=== PATIENT | female | born 1970 | race Two or more races ===

== ENCOUNTER 2019-09-11 22:56 | Emergency (ER) | payer BC, MEDICAID ==
[2019-09-12] MEDS ORDERED: Alum Hydrox/Mag Hydrox/Simeth 15 ML, Lidocaine 2% 15 ML PO ONE ×2 (00:02)
--- NOTE | 2019-09-12 00:07 | EDM.PDOC ---
ED HPI GENERAL MEDICAL PROBLEM - General Chief Complaint: Abdominal Pain Stated Complaint: ABD PAIN Time Seen by Provider: 09/11/19 23:55 Source of Information: Reports: Patient, Family, RN History Limitations: Reports: Other (no old records) - History of Present Illness INITIAL COMMENTS - FREE TEXT/NARRATIVE: 49 yo female presents with epigastric pain for about 7 hrs. No fever or vomiting. No change in bowels. Took acetaminophen without relief. Still has her gallbladder. No melena or hematochezia. Eating does not change the pain. Apparently no hx of the same pain. Onset: Today Onset Date: 09/11/19 Onset Time: 17:00 Duration: Hour(s): (7), Constant Location: Reports: Abdomen (epigastric) Quality: Reports: Burning, Pressure Severity: Moderate Improves with: Reports: None Worsens with: Reports: Other (unknown) Context: Reports: Other (see HPI) Associated Symptoms: Reports: No Other Symptoms Treatments FIELD SERVICE REPRESENTATIVE: Reports: Acetaminophen - Related Data Allergies Allergy/AdvReac Type Severity Reaction Status Date / Time No Known Allergies Allergy Verified 09/11/19 23:29 Home Meds: Home Meds Famotidine 40 mg PO BEDTIME #30 tablet 09/12/19 [Rx] Past Medical History Cardiovascular History: Reports: Hypertension Gastrointestinal History: Reports: GERD, PUD Genitourinary History: Reports: Renal Calculus CHEMIST History: Reports: Endocrine/Metabolic History: Reports: Obesity/BMI 30+ Social & Family History - Tobacco Use Smoking Status *Q: Never Smoker - Caffeine Use Caffeine Use: Reports: Soda - Recreational Drug Use Recreational Drug Use: No ED ROS GENERAL - Review of Systems Review Of Systems: See Below Constitutional: Reports: No Symptoms HEENT: Reports: No Symptoms Respiratory: Reports: No Symptoms Cardiovascular: Reports: No Symptoms GI/Abdominal: Reports: Abdominal Pain. Denies: Black Stool, Bloody Stool, Constipation, Diarrhea, Distension, Flatus, Hematemesis, Hematochezia, Melena, Nausea, Vomiting : Reports: No Symptoms Musculoskeletal: Reports: No Symptoms Skin: Reports: No Symptoms Neurological: Reports: No Symptoms ED EXAM, GI/ABD - Physical Exam Exam: See Below Exam Limited By: No Limitations General Appearance: Alert, WD/WN, No Apparent Distress, Obese Eyes: Bilateral: Normal Appearance Ears: Normal External Exam, Normal Canal, Hearing Grossly Normal Nose: Normal Inspection, No Blood Throat/Mouth: Normal Inspection, Normal Lips, Normal Oropharynx, Normal Voice, No Airway Compromise Head: Atraumatic, Normocephalic Neck: Normal Inspection Respiratory/Chest: No Respiratory Distress, Lungs Clear, Normal Breath Sounds, No Accessory Muscle Use Cardiovascular: Regular Rate, Rhythm, No Edema GI/Abdominal Exam: Soft, Tender (epigastric), Abnormal Bowel Sounds (decreased) . No: Normal Bowel Sounds, Non-Tender, No Distention, Guarding, Rigid, Rebound Extremities: Normal Inspection, Normal Range of Motion, Non-Tender, No Pedal Edema Neurological: Alert, Oriented, CN II-XII Intact, Normal Cognition, No Motor/ Sensory Deficits Psychiatric: Normal Affect, Normal Mood Skin Exam: Warm, Dry, Intact, Normal Color, No Rash Course - Vital Signs Text/Narrative:: GI cocktail po-minimal change Last Recorded V/S: Last Vital Signs Temp 36.2 C 09/11/19 23:32 Pulse 65 09/12/19 00:46 Resp 14 09/12/19 00:46 BP 162/107 H 09/12/19 00:46 Pulse Ox 99 09/12/19 00:46 - Orders/Labs/Meds Orders: Active Orders 24 hr Category Date Time Status Sodium Chloride 0.9% [Saline Flush] Med 09/12/19 00:12 Active 10 ml FLUSH ASDIRECTED PRN Saline Lock Insert [OM.PC] Routine Oth 09/12/19 00:12 Ordered Medication Orders Sodium Chloride (Saline Flush) 10 ml FLUSH ASDIRECTED PRN PRN Reason: Keep Vein Open Last Admin: 09/12/19 01:09 Dose: 10 ml Admin: 09/12/19 00:25 Dose: 10 ml Labs: Laboratory Tests 09/12/19 09/12/19 09/12/19 Range/Units 00:20 00:20 00:34 WBC 11.2 H (4.5-11.0) K/uL RBC 4.90 (3.30-5.50) M/uL Hgb 13.9 (12.0-15.0) g/dL Hct 42.2 (36.0-48.0) % MCV 86 (80-98) fL MCH 28 (27-31) pg MCHC 33 (32-36) % Plt Count 435 H (150-400) K/uL Sodium 135 L (140-148) mmol/L Potassium 4.0 (3.6-5.2) mmol/L Chloride 100 (100-108) mmol/L Carbon Dioxide 26 (21-32) mmol/L Anion Gap 13.0 (5.0-14.0) mmol/L BUN 11 (7-18) mg/dL Creatinine 0.8 (0.6-1.0) mg/dL Est Cr Clr Drug Dosing 79.63 mL/min Estimated GFR (MDRD) > 60 (>60) Glucose 143 H (74-106) mg/dL Calcium 8.9 (8.5-10.1) mg/dL Total Bilirubin 0.2 (0.2-1.0) mg/dL AST 14 L (15-37) U/L ALT 33 (12-78) U/L Alkaline Phosphatase 80 (46-116) U/L C-Reactive Protein 0.10 (0.0-0.3) mg/dL Total Protein 8.0 (6.4-8.2) g/dL Albumin 3.6 (3.4-5.0) g/dL Globulin 4.4 H (2.3-3.5) g/dL Albumin/Globulin Ratio 0.8 L (1.2-2.2) Lipase 116 (73-393) U/L Meds: Medications Generic Name Dose Route Start Last Admin Trade Name Louieq PRN Reason Stop Dose Admin Sodium Chloride 10 ml 09/12/19 00:12 09/12/19 01:09 Saline Flush FLUSH 10 ml ASDIRECTED PRN Administration Keep Vein Open Discontinued Medications Generic Name Dose Route Start Last Admin Trade Name Prasad PRN Reason Stop Dose Admin Al Hydroxide/Mg Hydroxide 15 0 ml 09/12/19 00:02 09/12/19 00:07 ml/ Lidocaine HCl 15 ml PO 09/12/19 00:03 30 ml ONETIME ONE Administration Famotidine 40 mg 09/12/19 01:04 09/12/19 01:38 Pepcid PO 09/12/19 01:05 40 mg ONETIME ONE Administration Hydromorphone HCl 0.5 mg 09/12/19 00:12 09/12/19 00:25 Dilaudid IVPUSH 09/12/19 00:13 0.5 mg ONETIME ONE Administration Metoclopramide HCl 10 mg 09/12/19 01:32 Reglan IVPUSH 09/12/19 01:33 ONETIME ONE Ondansetron HCl 4 mg 09/12/19 01:04 09/12/19 01:08 Zofran IVPUSH 09/12/19 01:05 4 mg ONETIME ONE Administration Ondansetron HCl Confirm 09/12/19 01:06 09/12/19 01:09 Zofran Administered 09/12/19 01:07 Not Given Dose 4 mg .ROUTE .STK-MED ONE Departure - Departure Time of Disposition: :43 Disposition: Home, Self-Care 01 Condition: Fair Clinical Impression: Gastritis Qualifiers: Gastritis type: unspecified gastritis Chronicity: acute Gastritis bleeding: without bleeding Qualified Code(s): K29.00 - Acute gastritis without bleeding HTN (hypertension) Qualifiers: Hypertension type: unspecified Qualified Code(s): I10 - Essential (primary) hypertension - Discharge Information *PRESCRIPTION DRUG MONITORING PROGRAM REVIEWED*: No *COPY OF PRESCRIPTION DRUG MONITORING REPORT IN PATIENT DEVORAH: No Prescriptions: Famotidine 40 mg PO BEDTIME #30 tablet Referrals: PCP,None [Primary Care Provider] - Forms: ED Department Discharge Additional Instructions: Take famotidine as directed every day at bedtime. Take acetaminophen up to 1000 mg every 6 hrs for pain relief. Avoid alcohol, tobacco, aspirin, ibuprofen, naproxen, or carbonated beverages. Recheck in the clinic later this week for your abdominal pain and your blood pressure. Return if worse. Sepsis Event Note - Evaluation Sepsis Screening Result: No Definite Risk - Focused Exam Vital Signs: Vital Signs Temp Pulse Resp BP Pulse Ox 09/12/19 00:46 65 14 162/107 H 99 09/11/19 23:32 36.2 C 80 19 180/111 H 97 09/11/19 23:31 36.2 C 80 19 180/111 H 97 09/11/19 23:22 82 16 158/100 H 99 Date Exam was Performed: 09/12/19 Time Exam was Performed: :43 - My Orders Last 24 Hours: My Active Orders 09/12/19 00:12 Sodium Chloride 0.9% [Saline Flush] 10 ml FLUSH ASDIRECTED PRN Saline Lock Insert [OM.PC] Routine - Assessment/Plan Last 24 Hours: My Active Orders 09/12/19 00:12 Sodium Chloride 0.9% [Saline Flush] 10 ml FLUSH ASDIRECTED PRN Saline Lock Insert [OM.PC] Routine
[2019-09-12] MEDS ORDERED: HYDROmorphone 0.5 MG/0.5 ML Syringe IVPUSH ONE (00:12)
[2019-09-12] MEDS: Sodium Chloride 0.9% 10 ML Syringe FLUSH PRN ×2 (00:25→01:09)
[2019-09-12] MEDS ORDERED: Ondansetron 4 MG/2 ML SDV IVPUSH ONE (01:04)
[2019-09-12] MEDS ORDERED: Famotidine 20 MG Tab PO ONE (01:04)
[2019-09-12] MEDS ORDERED: Ondansetron 4 MG/2 ML SDV ONE (01:06)
[2019-09-12] MEDS ORDERED: Metoclopramide 10 MG/2 ML SDV IVPUSH ONE (01:32)
== END 2019-09-12 01:55 | disposition home or self-care (01) ==
LOC: JP.ED 22:56
DX: K29.00 Acute gastritis without bleeding (principal); I10 Essential (primary) hypertension; K21.9 Gastro-esophageal reflux disease without esophagitis; E66.9 Obesity, unspecified; Z79.899 Other long term (current) drug therapy; Z68.41 Body mass index [BMI] 40.0-44.9, adult
CPT/HCPCS: 36415; 80053; 83690; 85027; 86140; 96374; 96375; 99284; A9270; J1170; J2405